=== PATIENT | female | born 1980 | race Hispanic/Latino ===

== ENCOUNTER 2017-05-18 15:05 | Emergency (ER) | payer SELFPAY ==
[2017-05-18] MEDS ORDERED: SULFAMETHOX-TMP DS 800/160 TAB ONE (16:09)
[2017-05-18] MEDS ORDERED: IBUPROFEN 600 MG TABLET ONE (16:09)
== END 2017-05-18 16:59 | disposition home or self-care (01) ==
LOC: EDH 15:05
DX: L02.31 Cutaneous abscess of buttock (principal); E11.9 Type 2 diabetes mellitus without complications; Z72.0 Tobacco use